=== PATIENT | female | born 1980 | race Hispanic/Latino ===

== ENCOUNTER 2025-04-25 08:37 | Emergency (ER) | payer OTHER ==
[2025-04-25] MEDS ORDERED: Iopamidol 370 76% 100 ML VIAL ONE (08:53)
[2025-04-25 10:03] LABS: #Basophils 0.08 10x3/uL (0.0-0.2); #Eosinophils 0.30 10x3/uL (0.0-0.5); #Monocytes 0.51 10x3/uL (0.0-1.1); #Neutrophils 4.03 10x3/uL (1.5-8.4); %Basophils 1.2 % (0.0-2.0); %Eosinophils 4.5 % (0.0-6.0); %Lymphocytes 26.9 % (18.0-47.0); %Monocytes 7.6 % (0.0-10.0); %Neutrophils 59.7 % (40.0-75.0); Hematocrit 42.9 % (34.9-44.5); Hemoglobin 14.8 g/dL (12.0-15.5); Mean Corpuscular Hemoglobin 31.8 pg (27.0-33.0); Mean Corpuscular Volume 92.3 fL (81.6-98.3); Platelet Count 310 10x3/uL (150-450); Red Blood Cell (RBC) Count 4.65 10x6/uL (3.90-5.03); White Blood Cell (WBC) Count 6.74 10x3/uL (3.5-10.5)
[2025-04-25 10:12] LABS: BHCG - Serum Negative (NEGATIVE); Pregs Control Background? CLEAR/WHITE (CLR/WHITE); Pregs Control Bar Appear? YES (CONTROL BAR)
[2025-04-25] MEDS ORDERED: Ketorolac Tromethamine 30 MG (1 mL) VIAL ONE (10:18)
[2025-04-25 10:24] LABS: ALT (SGPT) 40 U/L (Less than 34); AST (SGOT) 24 U/L (11-34); Albumin 3.7 g/dL (3.1-4.5); Alkaline Phosphatase 104 U/L (40-110); Anion Gap 13 mmol/L (10-20); BUN (Urea Nitrogen) 7 mg/dL (7.0-18.7); Bilirubin, Total 0.3 mg/dL (0.3-1.2); Calc. Creatinine Clearance 0 mL/min (70-130); Calcium 8.9 mg/dL (7.8-10.44); Carbon Dioxide 19 mmol/L (22-29); Chloride 109 mmol/L (98-107); Globulin 3.5 g/dL (2.4-3.5); Glucose 85 mg/dL (70-105); Lipase 45 U/L (8-78); Magnesium 2.0 mg/dL (1.6-2.6); Potassium 4.4 mmol/L (3.5-5.1); Sodium 137 mmol/L (136-145)
[2025-04-25 10:30] LABS: Troponin I Less than 0.010 ng/mL (< 0.028)
== END 2025-04-25 14:25 | disposition home or self-care (01) ==
LOC: CSHERS 08:37
DX: R07.9 Chest pain, unspecified (principal); K08.89 Other specified disorders of teeth and supporting structures; E66.9 Obesity, unspecified
CPT/HCPCS: 71045; 71275; 80053; 83690; 83735; 83880; 84484; 84703; 85025; 85379; 93005; 96372; J1885

== ENCOUNTER 2025-04-27 12:52 | Emergency (ER) | payer MEDICAID, OTHER | END 2025-04-27 13:30 | disposition home or self-care (01) | LOC: CSHERS 12:52 | DX: K04.7 Periapical abscess without sinus (principal) | CPT/HCPCS: 99283 ==